=== PATIENT | male | born 1995 | race Caucasian/White ===

== ENCOUNTER 2024-11-24 22:57 | Emergency (ER) | payer SELFPAY ==
[2024-11-24 23:02] VITALS: PULSE 94; RESP 16; O2SAT 97
== END 2024-11-24 23:05 | disposition left against medical advice (07) ==
LOC: ER 22:57
DX: T78.49XA Other allergy, initial encounter (principal); Z53.21 Procedure and treatment not carried out due to patient leaving prior to being seen by health care provider; X58.XXXA Exposure to other specified factors, initial encounter